=== PATIENT | male | born 1990 | race African-American/Black ===

== ENCOUNTER 2022-05-03 01:11 | Emergency (ER) | payer OTHER ==
[~2022-05-03] VITALS: Ht 175.3 cm; Wt 75.0 kg
[2022-05-03 01:41] VITALS: BP 115/77
[2022-05-03] MEDS ORDERED: PERTUSS(ACELL),DIPH,TET VAC/PF 0.5 ML SYRINGE IM. ONE (02:45)
== END 2022-05-03 03:03 | disposition home or self-care (01) ==
LOC: EMS 01:12
DX: S51.812A Laceration without foreign body of left forearm, initial encounter (principal); S61.411A Laceration without foreign body of right hand, initial encounter; W25.XXXA Contact with sharp glass, initial encounter; Y93.89 Activity, other specified; Y92.89 Other specified places as the place of occurrence of the external cause; Y99.8 Other external cause status
CPT/HCPCS: 12001; 90471; 90715; 99283